=== PATIENT | male | born 1990 | race Caucasian/White ===

== ENCOUNTER 2019-01-04 14:12 | Emergency (ER) | payer BC ==
[~2019-01-04] VITALS: Ht 177.8 cm; Wt 86.2 kg
[2019-01-04 14:30] VITALS: BP_SYST 122
[2019-01-04 15:40] VITALS: BP_SYST 122
== END 2019-01-04 15:40 | disposition home or self-care (01) ==
LOC: SED 14:12
DX: S39.011A Strain of muscle, fascia and tendon of abdomen, initial encounter (principal); F32.9 Major depressive disorder, single episode, unspecified; W07.XXXA Fall from chair, initial encounter; Y93.89 Activity, other specified; Y92.89 Other specified places as the place of occurrence of the external cause; Y99.8 Other external cause status
CPT/HCPCS: 99282

== ENCOUNTER 2019-07-30 11:20 | Emergency (ER) | payer BC ==
[~2019-07-30] VITALS: Ht 177.8 cm; Wt 90.7 kg
[2019-07-30 11:25] VITALS: BP_SYST 160
[2019-07-30] MEDS ORDERED: SULFAMETHOXAZOLE/TRIMETHOPR DS 1 TABLET PO ONE (12:00)
[2019-07-30] MEDS ORDERED: CEPHALEXIN 500 MG CAPSULE PO ONE (12:00)
[2019-07-30 12:23] VITALS: BP_SYST 160
== END 2019-07-30 12:25 | disposition home or self-care (01) ==
LOC: SED 11:20
DX: L03.116 Cellulitis of left lower limb (principal)
CPT/HCPCS: 99283